=== PATIENT | male | born 1975 | race Caucasian/White ===

== ENCOUNTER 2017-04-30 18:55 | Emergency (ER) | payer MEDICARE | END 2017-04-30 20:35 | disposition home or self-care (01) | LOC: D.ER 18:55 | DX: M54.5 Low back pain (principal); S39.012A Strain of muscle, fascia and tendon of lower back, initial encounter; X58.XXXA Exposure to other specified factors, initial encounter; Y93.89 Activity, other specified; Y92.89 Other specified places as the place of occurrence of the external cause; M62.838 Other muscle spasm; M79.1 Myalgia; M79.605 Pain in left leg; M79.604 Pain in right leg ==

== ENCOUNTER 2017-06-07 20:03 | Emergency (ER) | payer MEDICARE ==
[2017-06-07 22:24] LABS: BASOPHILS 0.6 % (0-2); EOSINOPHILS 4.2 % (0-7); HEMATOCRIT 43.5 % (42.0-54.0); HEMOGLOBIN 14.9 g/dL (13.5-17.5); IMMATURE GRANULOCYTES 0.1 % (0-5); LYMPHOCYTES 32.8 % (15-50); MCH 29.9 pg (26.0-34.0); MCHC 34.3 g/dL (31.0-37.0); MCV 87.2 fL (80.0-100.0); MEAN PLATELET VOLUME 10.1 fL (7.4-10.4); MONOCYTES 8.6 % (2-11); NEUTROPHILS 53.7 % (40-80); PLATELET COUNT 243 10x3/uL (130-400); RBC 4.99 10x6/uL (4.20-6.10); RDW 12.8 % (11.5-14.5); WBC 9.3 10x3/uL (4.8-10.8)
[2017-06-07 22:38] LABS: APPEARANCE CLEAR (CLEAR); BILIRUBIN NEGATIVE (NEGATIVE); COLOR YELLOW (YELLOW); GLUCOSE NEGATIVE (NEGATIVE); KETONE NEGATIVE (NEGATIVE); LEUKOCYTE ESTERASE TRACE (NEGATIVE); NITRITE NEGATIVE (NEGATIVE); PROTEIN NEGATIVE (NEGATIVE); SPECIFIC GRAVITY 1.025 (1.005-1.020); UROBILINOGEN NORMAL (NORMAL)
[2017-06-07 22:39] LABS: WHITE CELLS - URINE OCC /hpf (0-5)
[2017-06-07 22:46] LABS: ALBUMIN 3.8 g/dL (3.4-5.0); ALKALINE PHOSPHATASE 96 U/L (46-116); ALT (SGPT) 33 U/L (10-68); AMYLASE - SERUM 25 U/L (25-115); CALC OSMOLALITY 283 mosm/kg (275-300); CARBON DIOXIDE 27.5 mmol/L (21.0-32.0); CHLORIDE - SERUM 105 mmol/L (98-107); GLUCOSE 96 mg/dL (74-106); LIPASE 150 U/L (73-393); POTASSIUM - SERUM 3.3 mmol/L (3.5-5.1); PROTEIN - SERUM 7.1 g/dL (6.4-8.2); SODIUM 143 mmol/L (136-145); UREA NITROGEN 11 mg/dL (7-18); eGFR NON AFRICAN AMERICAN 87 mL/min (90-120)
== END 2017-06-07 23:56 | disposition home or self-care (01) ==
LOC: D.ER 20:03
PROVIDERS: Emergency Medicine
DX: K21.9 Gastro-esophageal reflux disease without esophagitis (principal); F17.200 Nicotine dependence, unspecified, uncomplicated

== ENCOUNTER 2017-12-18 10:38 | Emergency (ER) | payer MEDICARE | END 2017-12-18 13:42 | disposition left against medical advice (07) | LOC: D.ER 10:38 | DX: S39.92XA Unspecified injury of lower back, initial encounter (principal); X58.XXXA Exposure to other specified factors, initial encounter; Y93.89 Activity, other specified; Y92.89 Other specified places as the place of occurrence of the external cause ==

== ENCOUNTER 2017-12-25 19:22 | Emergency (ER) | payer MEDICARE | END 2017-12-25 21:28 | disposition home or self-care (01) | LOC: D.ER 19:22 | DX: S02.5XXA Fracture of tooth (traumatic), initial encounter for closed fracture (principal); X58.XXXA Exposure to other specified factors, initial encounter; Y93.89 Activity, other specified; Y92.89 Other specified places as the place of occurrence of the external cause; K08.89 Other specified disorders of teeth and supporting structures; K21.9 Gastro-esophageal reflux disease without esophagitis ==

== ENCOUNTER 2018-07-23 13:50 | Emergency (ER) | payer MEDICARE ==
[~2018-07-23] VITALS: Ht 175.3 cm; Wt 90.9 kg
[2018-07-23 13:54] VITALS: Ht 175.3 cm; Wt 90.9 kg
[2018-07-23] MEDS ORDERED: NORCO 10-325 TA1 TAB PO (13:56)
[2018-07-23] MEDS ORDERED: XANAX1 MG PO (13:56)
[2018-07-23] MEDS ORDERED: KEFLEX500 MG PO (14:59)
[2018-07-23 15:22] VITALS: BP 120/068
== END 2018-07-23 15:23 | disposition home or self-care (01) ==
LOC: D.ER 13:50
DX: S61.211A Laceration without foreign body of left index finger without damage to nail, initial encounter (principal); W26.9XXA Contact with unspecified sharp object(s), initial encounter; Y93.9 Activity, unspecified; Y92.9 Unspecified place or not applicable

== ENCOUNTER 2018-11-27 06:09 | Emergency (ER) | payer MEDICARE ==
[~2018-11-27] VITALS: Ht 175.3 cm; Wt 95.5 kg
[~2018-11-27 06:09] MED LIST: KEFLEX500 MG PO; NORCO 10-325 TA1 TAB PO; XANAX1 MG PO
[2018-11-27 06:16] VITALS: Ht 175.3 cm; Wt 95.5 kg
[2018-11-27 06:55] LABS: BASOPHILS 0.5 % (0-2); EOSINOPHILS 2.6 % (0-7); IMMATURE GRANULOCYTES 0.3 % (0-5); LYMPHOCYTES 21.8 % (15-50); MCH 29.5 pg (26.0-34.0); MCV 86.7 fL (80.0-100.0); MONOCYTES 6.6 % (2-11); NEUTROPHILS 68.2 % (40-80); PLATELET COUNT 205 10x3/uL (130-400); RBC 5.42 10x6/uL (4.20-6.10); RDW 12.6 % (11.5-14.5); WBC 9.8 10x3/uL (4.8-10.8)
[2018-11-27 07:06] LABS: ALBUMIN 3.4 g/dL (3.4-5.0); ALKALINE PHOSPHATASE 98 U/L (46-116); ALT (SGPT) 76 U/L (10-68); CALC OSMOLALITY 287 mosm/kg (275-300); CALCIUM 8.7 mg/dL (8.5-10.1); CHLORIDE - SERUM 108 mmol/L (98-107); GLUCOSE 129 mg/dL (74-106); POTASSIUM - SERUM 4.3 mmol/L (3.5-5.1); PROTEIN - SERUM 7.1 g/dL (6.4-8.2); SODIUM 144 mmol/L (136-145); UREA NITROGEN 9 mg/dL (7-18); eGFR NON AFRICAN AMERICAN 86 mL/min (90-120)
[2018-11-27 07:09] LABS: AMYLASE - SERUM 34 U/L (25-115); LIPASE 148 U/L (73-393); TROPONIN-I < 0.017 ng/mL (0.000-0.060)
[2018-11-27] MEDS ORDERED: ZOFRAN ODT4 MG/UDTAB PO (07:19)
[2018-11-27 11:05] VITALS: BP 114/63
== END 2018-11-27 11:05 | disposition home or self-care (01) ==
LOC: D.ER 06:09
PROVIDERS: Family Medicine
DX: R10.13 Epigastric pain (principal); R11.10 Vomiting, unspecified; F17.200 Nicotine dependence, unspecified, uncomplicated

== ENCOUNTER 2019-10-19 11:03 | Emergency (ER) | payer MEDICARE ==
[~2019-10-19 11:03] MED LIST changes: +ZOFRAN ODT4 MG/UDTAB PO
[2019-10-19 11:14] VITALS: Ht 175.3 cm
[2019-10-19] MEDS ORDERED: LAMICTAL25 MG PO (11:43)
[2019-10-19] MEDS ORDERED: XANAX1 MG PO (11:43)
[2019-10-19 12:02] VITALS: BP 114/52
== END 2019-10-19 12:02 | disposition home or self-care (01) ==
LOC: D.ER 11:03
DX: F31.9 Bipolar disorder, unspecified (principal); F32.1 Major depressive disorder, single episode, moderate